=== PATIENT | male | born 1980 | race American Indian/Alaskan Native ===

== ENCOUNTER 2016-11-03 16:23 | Inpatient (IN) | payer OTHER ==
[2016-11-03] MEDS ORDERED: D50W (25GM) IV ONE ×3 (16:30→22:00)
[2016-11-03 17:24] LABS: Basophils % (Auto) 0.8 % (0.0-1.8); Eosinophils % (Auto) 1.7 % (0.0-4.3); Hematocrit 32.3 % (35.5-45.6); Hemoglobin 11.1 gm/dl (11.8-15.2); Mean Corpuscular HGB Conc 34 % (32-34); Mean Corpuscular Hemoglobin 31 pg (28-32); Mean Corpuscular Volume 89 fl (84-94); Platelet Count 359 K/mm3 (140-440); Red Blood Count 3.63 M/mm3 (3.65-5.03); Red Cell Distribution Width 14.8 % (13.2-15.2); White Blood Count 7.1 K/mm3 (4.5-11.0)
[2016-11-03] MEDS ORDERED: D50W (25GM) IV PRN (17:36)
[2016-11-03] MEDS ORDERED: D5NS 1,000 ML IV SCH (18:00)
--- NOTE | 2016-11-03 18:34 | Emergency Department Report ---
HPI - General Chief Complaint: Hypoglycemia Time Seen by Provider: 11/03/16 17:06 - HPI HPI: 36-year-old Afro-[place] male who presents to the emergency department by EMS from home with altered mental status and hypoglycemia. Patient found to have a blood sugar of 39 upon EMS arrival and was very combative. Allegedly the patient and his insulin this morning and did not eat much. He was given an amp of D50 and his blood sugar went up to about 105. Upon arrival to the emergency department the blood sugar was back down to 49 and the patient was given another amp of D50. Shortly afterwards the blood sugar was checked a third time and it was only up to 57 and the patient began becoming altered once again. When the patient's blood sugar is raised he begins to wake up but does continue to have aggression. At one point the patient does say that he is on both insulin R and an and takes it with meals. He does not have a primary care doctor. Patient says he is unsure whether he might or taken too much insulin he does not remember the events leading up to an ambulance being called on his behalf. ED Past Medical Hx - Past Medical History Previous Medical History?: Yes Hx Hypertension: Yes Hx Diabetes: Yes - Social History Smoking Status: Unknown if ever smoked Substance Use Type: None ED Review of Systems ROS: Stated complaint: LOW BLOOD SUGAR Other details as noted in HPI Comment: Unobtainable due to pts medical conditions Physical Exam - Physical Exam Vital Signs: Vital Signs 11/03/16 16:52 Temperature 97.8 F Pulse Rate 108 H Respiratory 16 Rate Blood Pressure 158/106 O2 Sat by Pulse 100 Oximetry Physical Exam: GENERAL: Patient is ill-appearing and unresponsive. HEENT: Normocephalic. Atraumatic. Extraocular motions are intact. Patient has moist mucous membranes. Pupils equal reactive to light bilaterally. NECK: Supple. Trachea is midline. CHEST/LUNGS: Clear to auscultation. There is no respiratory distress noted. HEART/CARDIOVASCULAR: Regular. There is mild tachycardia. There is no gallop rub or murmur. ABDOMEN: Abdomen is soft, nontender. Patient has normal bowel sounds. There is no abdominal distention. SKIN: There is no rash. There is no edema. There is no diaphoresis. NEURO: The patient currently unresponsive to verbal and painful stimuli. He does have a gag reflex. He is not currently following commands. MUSCULOSKELETAL: There is no tenderness or deformity. There is no limitation range of motion. There is no evidence of acute injury. ED Course Vital Signs 11/03/16 16:52 Temperature 97.8 F Pulse Rate 108 H Respiratory 16 Rate Blood Pressure 158/106 O2 Sat by Pulse 100 Oximetry - Reevaluation(s) Reevaluation #1: After the patient received his third dose of D50, he became more awake. He became slightly agitated and aggressive. However patient was able to answer most questions appropriately when redirected. 11/03/16 19:18 ED Medical Decision Making - Lab Data Result diagrams: 11/03/16 17:17 11/03/16 17:17 - Medical Decision Making 36-year-old male presents to the emergency department after he appeared altered and was found to have hypoglycemia. Patient's blood sugar was in the 40s, then given D50, it then increased to over 100 but came back down to about 50. He was then given another amp of D50 and his blood pressure only went up to 57. Patient was given a third amp of D50 and then started on a D5 drip. Patient's labs have showed some hypoglycemia and significant renal insufficiency if not renal failure. No current signs of infection. However patient has not given a urine sample at this time. It is unknown whether the patient took too much insulin, did not eat after getting his insulin, or if there are some other etiology. However the patient remains on a D5 drip will be admitted to hospital for further evaluation. Patient is been accepted for admission by Dr. Santos who was asked for bridging orders and this includes a consultation for the director of aviation, Dr. Hull. A renal ultrasound was ordered to evaluate the patient's renal failure. I did not feel that a CT of the brain was necessary at this time as the patient's altered mental status appears secondary to his sustained hypoglycemia. - Differential Diagnosis insulin overdose, noncompliance with eating, TIA/CVA Critical Care Time: No Critical care attestation.: If time is entered above; I have spent that time in minutes in the direct care of this critically ill patient, excluding procedure time. ED Disposition Clinical Impression: Hypoglycemia, Renal failure Altered mental status Qualifiers: Altered mental status type: unspecified Qualified Code(s): R41.82 - Altered mental status, unspecified Hypertension Qualifiers: Hypertension type: essential hypertension Qualified Code(s): I10 - Essential ( primary) hypertension Disposition: OP ADMITTED IP TO THIS HOSP Is pt being admited?: Yes Condition: Stable Instructions: Hypertension (ED) Time of Disposition: 19:17
[2016-11-03 18:57] LABS: BUN/Creatinine Ratio 11.08; Calcium 8.5 mg/dL (8.4-10.2); Chloride 106.5 mmol/L (98-107); Potassium 3.9 mmol/L (3.6-5.0)
[2016-11-03] MEDS ORDERED: HEPARIN SUB-Q SCH (19:30)
--- NOTE | 2016-11-03 20:43 | Ultrasound Report ---
FINAL REPORT EXAM: US RENAL BILAT HISTORY: renal failure acute renal failure TECHNIQUE: Ultrasound of the kidneys PRIORS: None. FINDINGS: Examination the kidneys demonstrates both to be normal in size and have normal cortical echogenicity and thickness. However, the right kidney is longer than the left. The right and left kidneys measure 11.0 cm and 9.5 cm in craniocaudal length, respectively. No evidence for calculi, hydronephrosis, or solid mass is seen in either kidney. The urinary bladder shows no intraluminal abnormality or wall thickening. IMPRESSION: Negative ultrasound of the kidneys and bladder.
[2016-11-03 20:48] LABS: Bilirubin,Urine NEG (Negative); Blood,Urine SM (Negative); Ketones,Urine NEG (Negative); Leukocyte Esterase,Urine NEG (Negative); Nitrite,Urine NEG (Negative); Urobilinogen,Urine < 2.0 mg/dL (<2.0)
--- NOTE | 2016-11-03 22:05 | Event Note ---
Date: 11/03/16 See H/p in reports Persistent Hypoglycemia HTN IDDM Metabolic encephalopathy CKD - worsening kidney function may have contributed to hypoglycemia
[2016-11-03] MEDS ORDERED: NOVOLOG SUB-Q ONE (22:11)
[2016-11-03] MEDS ORDERED: D10W 1,000 ML IV SCH (23:00)
[2016-11-03] MEDS: COREG PO SCH (23:04)
--- NOTE | 2016-11-03 23:23 | History and Physical Report ---
CHIEF COMPLAINT: Low blood sugars. HISTORY OF PRESENT ILLNESS: A 36-year-old -Surinamese male who presents to the ER with altered mental status and severe hypoglycemia, brought in by EMS. The patient found to have a blood sugar of 39 upon EMS arrival and very combative. The patient had his insulin this morning and did not eat much. His home medications are not known at this point. The patient has been persistently hypoglycemic in the ER despite of multiple D50Ws, hence the admission. He does not have a primary care. The patient states that he is unsure whether he might have taken too much insulin. The patient is confused, totally altered sensorium. PAST MEDICAL HISTORY: Significant for hypertension and diabetes. PAST SURGICAL HISTORY: Unknown. SOCIAL HISTORY: Unknown if ever smoked. Unable to get the history. FAMILY HISTORY: Hypertension. CURRENT MEDICATIONS: Not known. Also, nurse has not reconciled the medications. REVIEW OF SYSTEMS: Significant for severely altered sensorium secondary to low blood sugars. No fever. No chills. Otherwise, review of systems is essentially negative. PHYSICAL EXAMINATION: GENERAL: Young male, confused, altered sensorium. VITAL SIGNS: Temperature is 97.8, pulse is 108, respirations are 16, blood pressure 158/106. O2 sats are 100. HEENT: Unremarkable. Tongue slightly dry. NECK: Supple, no lymphadenopathy, no thyromegaly. LUNGS: Clear to auscultation and percussion. Good air entry. CARDIOVASCULAR: S1, S2 heard. No gallop, no murmur, no rub. Apical impulse in left fifth intercostal space and midclavicular line. ABDOMEN: Soft and benign. No hepatosplenomegaly. No guarding. No rigidity. Hernial orifices are normal. EXTREMITIES: Good pedal pulses. No pedal edema. CENTRAL NERVOUS SYSTEM: Altered sensorium, confused. Unable to give proper history. LABORATORY DATA: Significant for BUN and creatinine of 51 and 4.6, The patient was given 4-5 D50Ws in the ER, in spite of that persistently low blood sugar in the range of 40-50, hence the admission. ASSESSMENT AND PLAN: 1. Hypoglycemia, persistent, probably secondary to his worsening kidney function. We will adjust his medications. His medication doses are not known. His medications are not reconciled. For the time being, the patient on D10W and frequent D50Ws. 2. Insulin-dependent diabetes, coverage with the low dose protocol. We will adjust his medications once the medicines are reconciled. 3. Hypertension. We will start him on amlodipine 10 mg and Coreg 12.5 q. 12. 4. Chronic kidney disease. Nephrology, Dr. Sahu consulted. 5. Deep venous thrombosis prophylaxis, Lovenox 30 mg subcutaneous daily ordered. JOB# [id number] VSM/NTS KITTYD
--- NOTE | 2016-11-04 02:28 | Admit Criteria Form ---
Admission Criteria Documentation: DIABETES, HYPOGLYCEMIA Clinical Indications for Admission to Inpatient Care (Place 'X' for any and all applicable criteria): Admission is indicated for ALL of the following (1)(2)(3)(4)(5): [ X]I. Suspected or documented hypoglycemia (plasma glucose less than 50 mg/ dL (2.78 mmol/L)) with severe clinical manifestations or issues as indicated by ANY ONE of the following: [X ]a) Altered mental status (eg, coma, confusion) [ ]b) Seizure [ ]c) Ataxia [ ]d) Dysphasia [ ]e) Focal neurologic deficit(6) [ ]f) Severe weakness or fatigue [ ]g) Significant clinical signs or symptoms that do not resolve with treatment [ ]h) Hypoglycemia induced by ANY ONE of the following(7)(8)(9): [ ]i) Sulfonylurea(10) [ ]ii) Long-acting insulin (eg, half-life more than 6 hours ) (11) [ X]II. Management at other levels of care (See General Criteria: Observation Care) is not feasible because of ANY ONE of the following: [X ]a) Condition was not adequately corrected with treatment at other levels of care. [ ]b) Treatment at other levels of care is not appropriate because of condition severity (eg, coma). Extended stay beyond goal length of stay may be needed for(3)(12)(19): [ ]a) Long acting sulfonylurea-inducing hypoglycemia (10) [ ]b) Presentation in coma [ ]c) Identified etiology of hypoglycemia requires ongoing care (eg, infection ) [ ]d) Neurologic deficit [ ]e) Active serious comorbidities (eg, renal failure, heart failure) The original [employer] content created by [employer] has been revised. The portions of the content which have been revised are identified through the use of italic text or in bold, and [facility] [email or web address] has neither reviewed nor approved the modified material.All other unmodified content is copyright [email or web address] Please see references footnoted in the original [email or web address] edition 2016
[2016-11-04] MEDS ORDERED: NOVOLOG SUB-Q ONE (06:35)
[2016-11-04] MEDS ORDERED: NOVOLOG SUB-Q SCH ×3 (07:30→11:30)
[2016-11-04 09:02] VITALS: BP 163/106
[2016-11-04] MEDS ORDERED: NORVASC PO SCH (10:00)
[2016-11-04] MEDS: COREG PO SCH (10:21)
--- NOTE | 2016-11-04 12:48 | Consultation ---
History of Present Illness - Reason for Consult Consult date: 11/04/16 chronic renal failure, accelerated hypertension, proteinuria - History of Present Illness Patient is a 36 year old AAM with pmh significant for DM type 1, Hypertension, Anemia, CKD stage 4 and Diabetic retinopathy came to Emergency department by EMS from home with altered mental status and hypoglycemia. Information was also obtained from previous documentation. Patient was found to have a blood sugar of 39 upon EMS arrival and was very combative. Allegedly the patient took his insulin in the morning and did not eat much. He was given an amp of D50 and his blood sugar went up to about 105. Patient had several similar admissions over the past few weeks at multiple hospitals, most recently at [facility] 2 days prior to this admission. His creatinine was 4.5 last week at [facility]. He is not following with any physician. Patient denies any N, v, D, abd pain, dizziness, fever, rash, dysuria, hematuria or jaundice. Past History Past Medical History: anemia, diabetes, hypertension, renal failure Social history: Medications and Allergies Allergies Allergy/AdvReac Type Severity Reaction Status Date / Time No Known Allergies Allergy Unverified 11/03/16 17:02 Home Medications Medication Instructions Recorded Confirmed Last Taken Type Unobtainable 11/03/16 11/03/16 Unknown History Active Meds: Active Medications Amlodipine Besylate (Norvasc) 10 mg PO QDAY [facility] Last Admin: 11/04/16 10:21 Dose: 10 mg Carvedilol (Coreg) 12.5 mg PO BID [facility] Last Admin: 11/04/16 10:21 Dose: 12.5 mg Dextrose (D50w (25gm)) 50 ml IV PRN PRN PRN Reason: Hypoglycemia Enoxaparin Sodium (Lovenox) 30 mg SUB-Q QDAY@2200 [facility] Insulin Aspart (Novolog) 0 units SUB-Q ACHS [facility] PRN Reason: Protocol Review of Systems Constitutional: anorexia, no fever, no chills Eyes: bilateral: blurred vision, loss of vision Ears, nose, mouth and throat: no sinus pressure, no sinus pain, no epistaxis Cardiovascular: no chest pain, no edema, no syncope, no lightheadedness, no shortness of breath Respiratory: no cough, no shortness of breath, no dyspnea on exertion Gastrointestinal: no abdominal pain, no nausea, no vomiting, no diarrhea, no BRBPR, no melena, no hematochezia Genitourinary Male: no dysuria, no hematuria, no kidney stones Rectal: no bleeding Musculoskeletal: no neck stiffness, no neck pain Integumentary: no rash, no pruritis Neurological: change in mentation, confusion, loss of vision, no paralysis, no seizures, no syncope Psychiatric: no hallucinations Endocrine: high blood sugars, low blood sugars Hematologic/Lymphatic: no easy bleeding Allergic/Immunologic: no wheezing Exam - Vital Signs Vital signs: Vital Signs Pulse Ox 100 11/03/16 16:48 - General Appearance General appearance: well-developed, other (no distress) EENT: PERRL, hearing intact Neck: Present: neck supple, trachea midline Respiratory: Clear to Ascultation Heart: regular, S1S2, no murmurs Gastrointestinal: Present: normoactive bowel sounds. Absent: tenderness, distended, guarding Integumentary: no rash, warm and dry Neurologic: alert and oriented x3, other (bilateral blindness) Musculoskeletal: Present: other (1+ pitting edema of both LEs) Psychiatric: mood/affect appropriate, cooperative Results - Lab Results 11/03/16 17:17 11/03/16 17:17 Most recent lab results Calcium 8.5 mg/dL (8.4-10.2) 11/03/16 17:17 Assessment and Plan - Patient Problems (1) CKD (chronic kidney disease) stage 5, GFR less than 15 ml/min Current Visit: Yes Status: Acute Plan to address problem: CKD secondary to Diabetic Nephropathy, has progressed to stage 5. He had workup done at [facility]. Proteinuria noted. Patient refused any further treatment. (2) Hypertension Current Visit: Yes Status: Acute Qualifiers: Hypertension type: essential hypertension Qualified Code(s): I10 - Essential (primary) hypertension Plan to address problem: Increase Coreg to 25 mg BID. Add Lasix. (3) Hypoglycemia Current Visit: Yes Status: Acute (4) Anemia, chronic renal failure Current Visit: Yes Status: Acute
[2016-11-04] MEDS ORDERED: LASIX PO SCH (13:00)
--- NOTE | 2016-11-04 19:03 | Discharge Summary ---
Providers - Providers Date of Admission: 11/03/16 19:16 Date of discharge: 11/04/16 Attending physician: JUDITH SCHWARTZ 11/03/16 22:07 Consult to Physician [CONS] Routine Consulting Provider: IRA PETE Reason For Exam: ckd Place consult to:: dr. pete Notified:: dr. pete Phone number called:: [phone] Was contact made?: Yes If yes, spoke with:: dr. pete Time called:: 11:24 Primary care physician: [employer] Hospitalization Condition: Stable Hospital course: Left AMA before being seen. Disposition: LEFT AGAINST MEDICAL ADVICE Core Measure Documentation - Palliative Care Palliative Care/ Comfort Measures: Not Applicable - Core Measures Any of the following diagnoses?: none Exam - Constitutional Vitals: Temp Pulse Resp BP Pulse Ox 98.4 F 110 H 16 163/106 98 11/04/16 08:00 11/04/16 08:00 11/04/16 08:00 11/04/16 10:21 11/04/16 08:00 Plan Follow up with: LEVI MCALLISTER MD [Primary Care Provider] - 3-5 Days
[2016-11-04] MEDS ORDERED: HEPARIN SUB-Q SCH (22:00)
[2016-11-04] MEDS ORDERED: LOVENOX SUB-Q SCH ×2 (22:00)
[2016-11-04] MEDS ORDERED: COREG PO SCH (22:00)
== END 2016-11-04 18:00 | disposition left against medical advice (07) | DRG 638 ==
LOC: ED 16:23 → 3A 19:16
PROVIDERS: ADMIT Internal Medicine; ATTEND Internal Medicine
DX: E10.649 Type 1 diabetes mellitus with hypoglycemia without coma (principal); I12.0 Hypertensive chronic kidney disease with stage 5 chronic kidney disease or end stage renal disease; E10.319 Type 1 diabetes mellitus with unspecified diabetic retinopathy without macular edema; D63.1 Anemia in chronic kidney disease; N18.5 Chronic kidney disease, stage 5; Z53.21 Procedure and treatment not carried out due to patient leaving prior to being seen by health care provider; Z82.49 Family history of ischemic heart disease and other diseases of the circulatory system; E10.21 Type 1 diabetes mellitus with diabetic nephropathy
CPT/HCPCS: 36415; 76770; 80048; 81001; 82962; 83036; 85025; 93005; 93010; 96372; 96374; 96376; J1644; J1815; J7042